=== PATIENT | female | born 1955 | race Caucasian/White ===

== ENCOUNTER → 2016-07-22 | Outpatient (REF) | payer OTHER ==
[2016-07-22 14:04] LABS: FOLATE > 24.0 NG/ML; VITAMIN B12 LEVEL 735 PG/ML
[2016-07-23 13:01] LABS: ALBUMIN 4.16 GM/DL (3.29-5.55); ALBUMIN % 59.4 % (55.8-66.1); GAMMA GLOBULIN % 13.2 % (11.1-18.8)
== END ==
LOC: M LABNEURO 13:04
PROVIDERS: ATTEND Psychiatry & Neurology Neurology
DX: G62.9 Polyneuropathy, unspecified (principal)

== ENCOUNTER → 2016-09-03 | Outpatient (REF) | payer BC ==
[2016-09-03 18:24] LABS: TOTAL PROTEIN 7.3 GM/DL (6.4-8.2)
[2016-09-04 13:56] LABS: GAMMA GLOBULIN % 13.8 % (11.1-18.8)
== END ==
LOC: M LABNEURO 16:57
PROVIDERS: ATTEND Psychiatry & Neurology Neurology
DX: D47.2 Monoclonal gammopathy (principal)

== ENCOUNTER → 2016-10-28 | Outpatient (CLI) | payer BC ==
--- NOTE | 2016-10-28 22:17 | REP ---
Clinical: Monoclonal gammopathy of undetermined significance (MGUS). Technique: Adult bone survey including radiographs of the skull, cervicothoracolumbar spine, chest, pelvis, and proximal upper and lower extremities. Findings: No abnormal lytic, blastic or irregular osseous lesions are identified to suggest neoplasm or metastatic disease. Advanced focal degenerative change at the C6-7 level and L5-S1 level is appreciated along with age-related. Degenerative changes at the bilateral shoulder, elbow, hip, and knee joints. Impression: Degenerative changes as described above. No evidence for osseous neoplasm or metastatic disease. Signed by Nelson Robison MD 10/28/2016 10:09 P
== END ==
LOC: M RAD 11:31
PROVIDERS: ATTEND Internal Medicine Medical Oncology
DX: D47.2 Monoclonal gammopathy (principal)

== ENCOUNTER → 2017-05-14 | Outpatient (REF) | payer BC ==
[2017-05-14 15:15] LABS: TOTAL PROTEIN 7.2 GM/DL (6.4-8.2)
[2017-05-17 00:06] LABS: FREE KAPPA LIGHT CHAINS SERUM 14.5 mg/L (3.3-19.4); FREE LAMBDA LIGHT CHAINS SERUM 12.7 mg/L (5.7-26.3); KAPPA/LAMBDA RATIO SERUM 1.14 (0.26-1.65)
[2017-05-19 10:57] LABS: ALPHA-1-GLOBULIN % 3.8 % (2.9-4.9); ALPHA-2-GLOBULINS % 9.6 % (7.1-11.8); BETA-1-GLOBULINS % 6.8 % (4.7-7.2); BETA-2-GLOBULINS % 5.3 % (3.2-6.5)
[2017-05-19 10:58] LABS: ALBUMIN 4.39 GM/DL (3.29-5.55); ALPHA-1-GLOBULINS 0.27 GM/DL (0.17-0.41); ALPHA-2-GLOBULINS 0.69 GM/DL (0.42-0.99); BETA-1-GLOBULINS 0.49 GM/DL (0.28-0.60); BETA-2-GLOBULINS 0.38 GM/DL (0.19-0.55); GAMMA GLOBULIN % 13.5 % (11.1-18.8); GAMMA GLOBULINS 0.97 GM/DL (0.65-1.58)
== END ==
LOC: M LAB REF 13:29
DX: D47.2 Monoclonal gammopathy (principal)

== ENCOUNTER → 2017-05-14 | Outpatient (REF) | payer BC ==
[2017-05-14 15:13] LABS: CHOLESTEROL LEVEL 210 MG/DL (<200); CHOLESTEROL RISK RATIO 3.818 (<5); HDL CHOLESTEROL 55 MG/DL (>40); NON-HDL-C 155 MG/DL; TRIGLYCERIDES LEVEL 180 MG/DL (<150)
== END ==
LOC: M LAB REF 13:42
DX: E78.2 Mixed hyperlipidemia (principal)

== ENCOUNTER → 2017-11-23 | Outpatient (REF) | payer BC ==
[2017-11-23 13:57] LABS: TOTAL PROTEIN 6.9 GM/DL (6.4-8.2)
[2017-11-25 11:49] LABS: ALBUMIN % 61.5 % (55.8-66.1)
[2017-11-25 11:50] LABS: ALBUMIN 4.24 GM/DL (3.29-5.55); ALPHA-1-GLOBULIN % 3.9 % (2.9-4.9); ALPHA-1-GLOBULINS 0.27 GM/DL (0.17-0.41); ALPHA-2-GLOBULINS 0.67 GM/DL (0.42-0.99); ALPHA-2-GLOBULINS % 9.7 % (7.1-11.8); BETA-1-GLOBULINS 0.44 GM/DL (0.28-0.60); BETA-1-GLOBULINS % 6.4 % (4.7-7.2); BETA-2-GLOBULINS 0.35 GM/DL (0.19-0.55); BETA-2-GLOBULINS % 5.1 % (3.2-6.5); GAMMA GLOBULIN % 13.4 % (11.1-18.8); GAMMA GLOBULINS 0.92 GM/DL (0.65-1.58)
== END ==
LOC: M LAB REF 13:02
DX: D47.2 Monoclonal gammopathy (principal)
CPT/HCPCS: 84165

== ENCOUNTER 2018-08-24 07:53 | Day surgery (SDC) | payer BC ==
[~2018-08-24] VITALS: Ht 157.5 cm; Wt 65.8 kg
[~2018-08-24 07:53] MED LIST: ASPI81CH33 PO; CYCL5TAB PO; MULT1TAB18 PO; MULTTAB86 PO; PRIL20TA2 PO; SYNT50TA PO; VITA500045 PO; ZETI10TA30 PO
[2018-08-24] MEDS ORDERED: LIDOCAINE 2% INJ 100 MG/5 ML SDV (FOR ANES.) As Ordered ONE (08:28)
[2018-08-24] MEDS ORDERED: PROPOFOL 200 MG/20 ML VIAL As Ordered ONE ×2 (08:28→10:00)
--- NOTE | 2018-08-24 10:17 | ROOR ---
Patient Name: Kiara Coleman Procedure Date: 08/24/2018 9:51 AM Date of : 1955 Age: 62 Room: [facility] Gender: Female Note Status: Finalized Procedure: Colonoscopy Indications: Screening in patient at increased risk: Colorectal cancer in mother 60 or older, Screening in patient at increased risk: Colorectal cancer in brother 60 or older Providers: Giorgio THORNE MD Referring MD: ALESSANDRA KELLY MD Requesting Provider: Medicines: Monitored Anesthesia Care Complications: No immediate complications. Procedure: Pre-Anesthesia Assessment: - The heart rate, respiratory rate, oxygen saturations, blood pressure, adequacy of pulmonary ventilation, and response to care were monitored throughout the procedure. The Colonoscope was introduced through the anus and advanced to the terminal ileum, with identification of the appendiceal orifice and IC valve. The colonoscopy was performed without difficulty. The patient tolerated the procedure well. The quality of the bowel preparation was good. Findings: The perianal and digital rectal examinations were normal. Two sessile polyps were found in the sigmoid colon and ascending colon. The polyps were 4 to 6 mm in size. These polyps were removed with a cold snare. Resection and retrieval were complete. To prevent bleeding after the polypectomy, one hemostatic clip was successfully placed on sigmoid polypectomy site. Small Internal Hemorrhoids. The exam was otherwise without abnormality on direct and retroflexion views. (Exam: Complete, Prep: Good or Excellent.) Impression: - (Exam: Complete, Prep: Good or Excellent.) - Two 4 to 6 mm polyps in the sigmoid colon and in the ascending colon, removed with a cold snare. Resected and retrieved. Clip was placed. - Small Internal Hemorrhoids. - The examination was otherwise normal on direct and retroflexion views. Recommendation: - Repeat colonoscopy in 5 years for adenoma surveillance. Giorgio Thorne MD Giorgio THORNE MD 08/24/2018 10:17:24 AM Electronically signed by Giorgio THORNE MD Number of Addenda: 0 Note Initiated On: 08/24/2018 9:51 AM Estimated Blood Loss: Estimated blood loss: none.
[2018-08-24 10:35] VITALS: BP 122/66
== END 2018-08-24 10:46 | disposition home or self-care (01) ==
LOC: M OPP 07:53
PROVIDERS: ATTEND Internal Medicine Gastroenterology
DX: D12.2 Benign neoplasm of ascending colon (principal); D12.5 Benign neoplasm of sigmoid colon; K64.8 Other hemorrhoids; Z12.11 Encounter for screening for malignant neoplasm of colon; Z80.0 Family history of malignant neoplasm of digestive organs

== ENCOUNTER → 2019-05-05 | Outpatient (CLI) | payer BC ==
[~2019-05-05] MED LIST changes: +LEVO25TA5 PO; +VITA50005 PO; +ZETI10TA16 PO; -ZETI10TA30 PO
--- NOTE | 2019-05-06 02:12 | REP ---
Clinical: Monoclonal gammopathy. Technique: Adult bone survey (16 images of the axial and appendicular skeletal structures). Comparison: 10/28/2016. Findings: Images of the calvarium demonstrate a single 7 mm lucency at the midline vertex which is nonspecific. No further abnormal lytic, blastic, or irregular osseous lesions are identified to suggest neoplasm or metastatic disease. There is no evidence for obvious acute or pathologic fracture. Moderate to significant degenerative disc osteophyte complex at C6-7 as well as moderate lumbar degenerative spondylosis and mild thoracic spondylosis is appreciated. Frontal view of the pelvis demonstrates symmetric mild degenerative changes to the bilateral hip joints. Impression: 1. Single subtle lucency involving the calvarium is nonspecific. 2. Scattered degenerative changes involving the cervical and thoracic lumbar spine as well as mild bilateral hip joints. Electronically Signed by Nelson Robison MD 05/06/2019 02:04 A
== END ==
LOC: M RAD 11:43
PROVIDERS: ATTEND Internal Medicine Hematology & Oncology
DX: D47.2 Monoclonal gammopathy (principal)

== ENCOUNTER → 2019-05-20 | Outpatient (CLI) | payer BC ==
[~2019-05-20] MED LIST changes: +AIRB1CHW PO; +DOXY100C PO; +GASTROGRAFIN SOLUTION 30ML (Q9963) As Ordered ONE; +ISOVUE-370 76% 100ML VIAL (Q9967) As Ordered ONE; +MELA3TAB49 PO; +MULTCAP PO
--- NOTE | 2019-05-20 12:47 | REPVR ---
PROCEDURE INFORMATION: Exam: CT Chest With Contrast Exam date and time: 05/20/2019 11:13 AM Age: 63 years old Clinical indication: Abnormal findings; Abnormal diagnostic tests; Other: Abnormal cytometry; Additional info: Abnormal blood flow cytometry, lymphoma? TECHNIQUE: Imaging protocol: Computed tomography of the chest with intravenous contrast. Radiation optimization: All CT scans at this facility use at least one of these dose optimization techniques: automated exposure control; mA and/or kV adjustment per patient size (includes targeted exams where dose is matched to clinical indication); or iterative reconstruction. Contrast material: ISOVUE 370; Contrast volume: 100 ml; Contrast route: IV; Other contrast: Route: Oral, Material: GASTROGRAPHIN, Volume: 10ML GASTRO TO 290 ML WATER X 2; COMPARISON: No relevant prior studies available. FINDINGS: Lungs: Minimal atelectasis is present in the lower lobes. Pleural space: Unremarkable. No pneumothorax. No pleural effusion. Heart: Unremarkable. No cardiomegaly. No pericardial effusion. Mediastinum: Vague soft tissue is present within the anterior mediastinum. This could represent thymic tissue, but this would be atypical in a patient of this age. A thymoma or abnormal lymphoid tissue is not excluded. Follow-up is suggested. Aorta: Unremarkable. No aortic aneurysm. Lymph nodes: See Mediastinum Finding. Bones/joints: Unremarkable. No acute fracture. Soft tissues: Unremarkable. IMPRESSION: Vague soft tissue is present within the anterior mediastinum. This could represent thymic tissue, but this would be atypical in a patient of this age. A thymoma or abnormal lymphoid tissue is not excluded. Follow-up is suggested. Electronically signed by: Miguel Ángel Ward On 05/20/2019 12:47:15 PM
--- NOTE | 2019-05-20 12:55 | REPVR ---
PROCEDURE INFORMATION: Exam: CT Abdomen And Pelvis Without And With Contrast Exam date and time: 05/20/2019 11:13 AM Age: 63 years old Clinical indication: Abnormal findings; Abnormal lab test; Other: Abnormal blood flow cytometry; Additional info: Abnormal blood flow cytometry, lymphoma? TECHNIQUE: Imaging protocol: Computed tomography of the abdomen and pelvis without and with intravenous contrast. Radiation optimization: All CT scans at this facility use at least one of these dose optimization techniques: automated exposure control; mA and/or kV adjustment per patient size (includes targeted exams where dose is matched to clinical indication); or iterative reconstruction. Contrast material: ISOVUE 370; Contrast volume: 100 ml; Contrast route: IV; Other contrast: Route: Oral, Material: GASTROGRAPHIN, Volume: 10 ML GASTRO TO 290ML WATER X 2; COMPARISON: No relevant prior studies available. FINDINGS: Liver: Normal. No mass. Gallbladder and bile ducts: Normal. No calcified stones. No ductal dilation. Pancreas: Normal. No ductal dilation. Spleen: Normal. No splenomegaly. Adrenals: Normal. No mass. Kidneys and ureters: Normal. No hydronephrosis. Stomach and bowel: Unremarkable. No obstruction. No mucosal thickening. Appendix: No evidence of appendicitis. Intraperitoneal space: Unremarkable. No free air. No significant fluid collection. Vasculature: Atherosclerotic calcifications are noted within the aorta and its branches. Lymph nodes: Unremarkable. No enlarged lymph nodes. Bladder: Unremarkable as visualized. Reproductive: Unremarkable as visualized. Bones/joints: Unremarkable. No acute fracture. Soft tissues: Unremarkable. IMPRESSION: No acute abnormality. Electronically signed by: Miguel Ángel Ward On 05/20/2019 12:54:28 PM
== END ==
LOC: M RAD 09:17
PROVIDERS: ATTEND Internal Medicine Hematology & Oncology
DX: D47.2 Monoclonal gammopathy (principal)
CPT/HCPCS: 71260; 74178; Q9963; Q9967

== ENCOUNTER → 2019-05-23 | Outpatient (CLI) | payer BC ==
[~2019-05-23] MED LIST changes: -GASTROGRAFIN SOLUTION 30ML (Q9963) As Ordered ONE; -ISOVUE-370 76% 100ML VIAL (Q9967) As Ordered ONE
[2019-05-23 17:12] LABS: INR 1.19; PROTHROMBIN TIME 14.8 SECONDS (11.8-14.0)
[2019-05-23 17:28] LABS: ALBUMIN 3.3 GM/DL (3.2-5.2); ALT/SGPT 57 U/L (12-78); BILIRUBIN,DIRECT < 0.1 MG/DL (0.0-0.2); BILIRUBIN,TOTAL 0.3 MG/DL (0.2-1.0); IMMUNOGLOBULIN A 82.3 MG/DL (70-400); IRON (FE) 43 UG/DL (50-170); PERCENT SATURATION 14.8 % (13.2-45.0); TOTAL IRON BINDING CAPACITY 291 UG/DL (250-450); TOTAL PROTEIN 6.2 GM/DL (6.4-8.2)
[2019-05-25 12:38] LABS: HEPATITIS B SURFACE ANTIGEN NEGATIVE (NEGATIVE)
[2019-05-25 13:06] LABS: HEPATITIS B CORE ANTIBODY IGM NEGATIVE (NEGATIVE); HEPATITIS C VIRUS ABY INDEX 0.1 INDEX (<0.8)
[2019-05-25 13:08] LABS: HEPATITIS A ANTIBODY IGM NEGATIVE (NEGATIVE)
== END ==
LOC: M LAB 16:06
PROVIDERS: ATTEND Internal Medicine Gastroenterology
DX: R74.8 Abnormal levels of other serum enzymes (principal)

== ENCOUNTER → 2019-05-31 | Outpatient (CLI) | payer BC ==
--- NOTE | 2019-05-31 09:46 | REP ---
Clinical: History of hepatic steatosis. Technique: Real time beckham scale and color evaluation using curved array transducer. Findings: The liver is moderately echogenic without focal hepatic lesion identified. The pancreas is normal in appearance. The gallbladder is unremarkable and without gallstones, wall thickening, or pericholecystic fluid. No biliary ductal dilatation is appreciated and the common bile duct measures 5.0 mm diameter. Right kidney is relatively normal in reniform shape without hydronephrosis and measures 11.5 x 5.2 x 4.2 cm. No ascites in the visualized right upper quadrant. Impression: Hepatic steatosis. No focal hepatic lesion. Electronically Signed by Nelson Robison MD 05/31/2019 09:37 A
== END ==
LOC: M RAD 09:11
PROVIDERS: ATTEND Internal Medicine Gastroenterology
DX: R74.8 Abnormal levels of other serum enzymes (principal)

== ENCOUNTER → 2019-06-09 | Outpatient (CLI) | payer BC ==
[~2019-06-09] MED LIST changes: +B-122500 PO; +LIDOCAINE 2% INJ 100 MG/5 ML SDV (FOR ANES.) As Ordered ONE; +MIDAZOLAM INJ 2 MG/2 ML VIAL (J2250) As Ordered ONE; +fentaNYL 100 MCG/2 ML INJECTION (J3010) As Ordered ONE; +propofoL 500 MG/50 ML VIAL As Ordered ONE
[2019-06-09 12:55] LABS: HEMATOCRIT 39.7 % (36.0-47.0); HEMOGLOBIN 12.9 g/dl (12.0-15.5); MEAN CORPUSCULAR HEMOGLOBIN 28.3 pg (27.0-33.0); MEAN CORPUSCULAR HGB CONC 32.5 g/dl (32.0-36.5); MEAN CORPUSCULAR VOLUME 87.1 fl (80.0-96.0); PLATELET COUNT, AUTOMATED 215 10^3/uL (150-450); RED BLOOD COUNT 4.56 10^6/uL (4.00-5.40); WHITE BLOOD COUNT 4.3 10^3/uL (4.0-10.0)
[2019-06-09 13:25] VITALS: BP 112/56
--- NOTE | 2019-06-09 19:19 | MEDONCPN ---
Date/Time of Procedure Date of Procedure: Jun 09, 2019 [facility] Procedure Note BONE MARROW ASPIRATE AND BIOPSY: INDICATION: Leucopenia, abnormal peripheral blood flow cytometry After signed and informed consent was obtained, the patient was placed in the prone position. Anesthesia administered conscious sedation and monitored the patient. Please see separate Anesthesia report.The left posterior iliac crest was located and prepped and draped in a sterile fashion with Betadine and alcohol. About 10 ml Lidocaine was injected for local anesthesia. A Jamshidi needle was introduced and a bone marrow aspirate was obtained followed by a core biopsy. Spicules were identified n the aspirate specimen. Pressure was applied until homeostasis was achieved. A sterile pressure dressing was applied. The patient tolerated the procedure well with no apparent complications. Estimated blood loss was minimal.Specimens were sent to pathology. Followup: 10 to 14 days. EFRAIN DUGGAN MD Jun 09, 2019 19:19
== END ==
LOC: M IRPRO 11:22
PROVIDERS: ATTEND Internal Medicine Hematology & Oncology
DX: D47.2 Monoclonal gammopathy (principal); D72.819 Decreased white blood cell count, unspecified; E03.9 Hypothyroidism, unspecified; K76.0 Fatty (change of) liver, not elsewhere classified; K21.9 Gastro-esophageal reflux disease without esophagitis; J45.909 Unspecified asthma, uncomplicated; G62.9 Polyneuropathy, unspecified; Z88.0 Allergy status to penicillin; Z79.899 Other long term (current) drug therapy
CPT/HCPCS: 38222; 85027; 88300; 88305; 88311; 88313; J2250; J3010

== ENCOUNTER → 2019-11-09 | Outpatient (CLI) | payer BC ==
[~2019-11-09] MED LIST changes: -LIDOCAINE 2% INJ 100 MG/5 ML SDV (FOR ANES.) As Ordered ONE; -MIDAZOLAM INJ 2 MG/2 ML VIAL (J2250) As Ordered ONE; +VITA500C24 PO; -fentaNYL 100 MCG/2 ML INJECTION (J3010) As Ordered ONE; -propofoL 500 MG/50 ML VIAL As Ordered ONE
== END ==
LOC: M LABSMTC 10:48
PROVIDERS: ATTEND Anesthesiology
DX: Z01.818 Encounter for other preprocedural examination (principal); Z11.59 Encounter for screening for other viral diseases; Z20.828 Contact with and (suspected) exposure to other viral communicable diseases
CPT/HCPCS: C9803; U0003

== ENCOUNTER 2019-11-24 14:00 | Day surgery (SDC) | payer BC ==
[~2019-11-24] VITALS: Ht 157.5 cm; Wt 56.7 kg
== END 2019-11-24 15:05 | disposition home or self-care (01) ==
LOC: M OPP 14:00
PROVIDERS: ATTEND Internal Medicine Gastroenterology
DX: K22.2 Esophageal obstruction (principal); K30 Functional dyspepsia; K29.70 Gastritis, unspecified, without bleeding; Z79.82 Long term (current) use of aspirin; Z79.899 Other long term (current) drug therapy; Z88.0 Allergy status to penicillin; Z88.8 Allergy status to other drugs, medicaments and biological substances; Z80.0 Family history of malignant neoplasm of digestive organs

== ENCOUNTER → 2020-02-21 | Outpatient (CLI) | payer BC ==
[2020-02-21 21:54] LABS: FREE T4 2.21 NG/DL (0.76-1.46)
[2020-02-21 21:56] LABS: THYROID PEROXIDASE ANTIBODY > 1300.0 U/ML (<60.0)
[2020-02-21 22:15] LABS: TOTAL T3 365.3 NG/DL (60.0-181.0)
== END ==
LOC: M LAB 15:49
PROVIDERS: ATTEND Internal Medicine Endocrinology, Diabetes & Metabolism
DX: E05.00 Thyrotoxicosis with diffuse goiter without thyrotoxic crisis or storm (principal)

== ENCOUNTER → 2021-09-02 | Outpatient (CLI) | payer MEDICARE, BC ==
[~2021-09-02] MED LIST changes: +CVS5000S2 PO; -DOXY100C PO; +DOXY100C3 PO; +ERGO500029 PO; +EYECAP2 PO; +ISOVUE-370 76% 100ML VIAL As Ordered ONE; +LEVO-94 PO; +LEVO75TA4 PO; +MULT-90 PO; -VITA50005 PO
== END ==
LOC: M RAD 07:33
PROVIDERS: ATTEND Internal Medicine Hematology & Oncology
DX: D72.820 Lymphocytosis (symptomatic) (principal)
CPT/HCPCS: 71260; Q9967

== ENCOUNTER → 2021-09-22 | Outpatient (CLI) | payer MEDICARE, BC ==
[~2021-09-22] MED LIST changes: +D 50CAP2 PO; +FAMO20TA PO; +IBUP200C25 PO; -ISOVUE-370 76% 100ML VIAL As Ordered ONE; +MELA10CA6 PO; +Vitamin B12 PO; +vitamin D3 PO
== END ==
LOC: M LABSMTC 10:54
PROVIDERS: ATTEND Anesthesiology
DX: Z11.52 Encounter for screening for COVID-19 (principal)

== ENCOUNTER → 2021-09-24 | Outpatient (CLI) | payer MEDICARE, BC ==
[~2021-09-24] MED LIST changes: +LIDOCAINE 1% MDV 20ML VIAL As Ordered ONE; +OMEP10CASR PO; +ONDANSETRON 4MG/2ML VIAL As Ordered ONE; +fentaNYL 100 MCG/2 ML INJECTION As Ordered ONE
[2021-09-24 13:28] LABS: BASO # 0.1 10^3/uL (0.0-0.2); BASO % 1.2 % (0.0-1.0); EOS # 0.1 10^3/uL (0.0-0.5); EOS % 1.6 % (0.0-3.0); HEMATOCRIT 31.5 % (36.0-47.0); HEMOGLOBIN 9.6 g/dl (12.0-15.5); LYMPH # 1.2 10^3/uL (1.5-5.0); LYMPH % 26.9 % (24.0-44.0); MEAN CORPUSCULAR HGB CONC 30.5 g/dl (32.0-36.5); MEAN CORPUSCULAR VOLUME 88.7 fl (80.0-96.0); MONO # 0.4 10^3/uL (0.0-0.8); NEUTROPHILS # 2.6 10^3/uL (1.5-8.5); NEUTROPHILS % 60.1 % (36.0-66.0); PLATELET COUNT, AUTOMATED 276 10^3/uL (150-450); RED BLOOD COUNT 3.55 10^6/uL (4.00-5.40); WHITE BLOOD COUNT 4.3 10^3/uL (4.0-10.0)
[2021-09-24 13:46] VITALS: BP 108/60
== END ==
LOC: M IRPRO 12:17
PROVIDERS: ATTEND Internal Medicine Hematology & Oncology
DX: D47.2 Monoclonal gammopathy (principal); E05.00 Thyrotoxicosis with diffuse goiter without thyrotoxic crisis or storm
CPT/HCPCS: 36415; 38222; 77012; 85025; 88300; 88305; 88311; 88313; J2405; J3010

== ENCOUNTER 2022-02-18 11:50 | Day surgery (SDC) | payer MEDICARE, BC ==
[~2022-02-18] VITALS: Ht 157.5 cm; Wt 68.9 kg
[~2022-02-18 11:50] MED LIST changes: +CULT10CA4 PO; -LIDOCAINE 1% MDV 20ML VIAL As Ordered ONE; +NS 1,000 ML IV ONE; +OMEP-173 PO; +ONDA-83 PO; -ONDANSETRON 4MG/2ML VIAL As Ordered ONE; +PANT40TA29 PO; +POTA-151 PO; -fentaNYL 100 MCG/2 ML INJECTION As Ordered ONE
[2022-02-18] MEDS ORDERED: LIDOCAINE 2% 100MG/5ML SDV (FOR ANES.) As Ordered ONE (13:11)
[2022-02-18] MEDS ORDERED: propofoL 200 MG/20 ML VIAL As Ordered ONE (13:11)
[2022-02-18 13:50] VITALS: BP 140/75
== END 2022-02-18 14:12 | disposition home or self-care (01) ==
LOC: M OPP 11:50
PROVIDERS: ATTEND Internal Medicine Gastroenterology
DX: D50.9 Iron deficiency anemia, unspecified (principal); K64.8 Other hemorrhoids; K29.60 Other gastritis without bleeding; Z79.899 Other long term (current) drug therapy; Z88.0 Allergy status to penicillin; E89.0 Postprocedural hypothyroidism; N39.498 Other specified urinary incontinence; D72.820 Lymphocytosis (symptomatic)

== ENCOUNTER → 2022-04-03 | Outpatient (CLI) | payer MEDICARE, BC ==
[~2022-04-03] MED LIST changes: +FAMO10TA50 PO; -NS 1,000 ML IV ONE; +VITA500079 PO
== END ==
LOC: M LABSMTC 11:28
PROVIDERS: ATTEND Anesthesiology
DX: Z01.818 Encounter for other preprocedural examination (principal); Z11.52 Encounter for screening for COVID-19

== ENCOUNTER 2022-04-07 12:47 | Day surgery (SDC) | payer MEDICARE, BC ==
[~2022-04-07] VITALS: Ht 156.2 cm; Wt 67.6 kg
[~2022-04-07 12:47] MED LIST changes: +NS 1,000 ML IV ONE
[2022-04-07] MEDS ORDERED: LIDOCAINE 2% 100MG/5ML SDV (FOR ANES.) As Ordered ONE (15:08)
[2022-04-07] MEDS ORDERED: propofoL 200 MG/20 ML VIAL As Ordered ONE ×2 (15:08→15:49)
[2022-04-07] MEDS ORDERED: fentaNYL 100 MCG/2 ML INJECTION As Ordered ONE (15:08)
[2022-04-07] MEDS ORDERED: GLYCOPYRROLATE INJ 0.2 MG/ML 2 ML VIAL As Ordered ONE (15:11)
[2022-04-07 15:53] VITALS: BP 130/69
[2022-05-01] MEDS ORDERED: ZINC100T3 PO (14:20)
[2022-05-01] MEDS ORDERED: PEPC1TAB5 PO (14:21)
== END 2022-04-07 16:12 | disposition home or self-care (01) ==
LOC: M OPP 12:47
PROVIDERS: ATTEND Internal Medicine Gastroenterology
DX: D62 Acute posthemorrhagic anemia (principal); K31.811 Angiodysplasia of stomach and duodenum with bleeding; D50.9 Iron deficiency anemia, unspecified; K44.9 Diaphragmatic hernia without obstruction or gangrene; Z80.0 Family history of malignant neoplasm of digestive organs; E03.9 Hypothyroidism, unspecified; Z79.899 Other long term (current) drug therapy; Z88.0 Allergy status to penicillin

== ENCOUNTER → 2023-05-25 | Outpatient (REF) | payer MEDICARE, BC ==
[~2023-05-25] MED LIST changes: +EZET10TA58 PO; +LEVO100T5; -NS 1,000 ML IV ONE; +PEPC1TAB5 PO; -ZETI10TA16 PO; +ZINC100T3 PO
[2023-05-25 16:29] LABS: HEMOGLOBIN A1c 5.5 % (4.0-6.0)
== END ==
LOC: M LAB REF 15:09
PROVIDERS: ATTEND Nurse Practitioner Family
DX: R73.01 Impaired fasting glucose (principal)